=== PATIENT | female | born 1935 | race Caucasian/White ===

== ENCOUNTER 2019-07-18 09:30 | Outpatient (RCR) | payer SELFPAY | END 2019-07-18 23:59 | disposition home or self-care (01) | LOC: ANHAUDIO 09:30 | DX: Z46.1 Encounter for fitting and adjustment of hearing aid (principal) | CPT/HCPCS: 99199; V5264 ==

== ENCOUNTER 2019-08-29 15:00 | Outpatient (RCR) | payer MEDICARE, SELFPAY | END 2019-08-29 23:59 | disposition home or self-care (01) | LOC: ANHAUDIO 15:00 | DX: Z46.1 Encounter for fitting and adjustment of hearing aid (principal) | CPT/HCPCS: 99199 ==

== ENCOUNTER 2020-10-09 11:22 | Outpatient (RCR) | payer MEDICARE, SELFPAY | END 2020-10-09 23:59 | disposition home or self-care (01) | LOC: ANHAUDIO 11:22 | DX: Z46.1 Encounter for fitting and adjustment of hearing aid (principal) | CPT/HCPCS: 92593 ==